=== PATIENT | female | born 1980 | race Caucasian/White ===

== ENCOUNTER 2017-10-11 01:36 | Emergency (ER) | payer BC ==
[~2017-10-11] VITALS: Ht 175.3 cm; Wt 140.2 kg
[~2017-10-11 01:36] MED LIST: AMITRIPTYLINE H25 M2 PO; ATIVAN1 MG PO; COLACE 100 MG100 MG PO; FLEXERIL PO; IBUPROFEN 800800 M1 PO; METHOCARBAMOL750 MG PO; SUBOXONE 8 MG-1 EAC3 PO
[2017-10-11] MEDS ORDERED: LATUDA20 MG PO (01:52)
[2017-10-11 02:30] LABS: ABSOLUTE NEUTROPHILS 6.8 thou/uL (1.4-8.2); BASOPHILS 0.9 % (0.0-2.0); EOSINOPHILS 1.7 % (0.0-3.0); HEMATOCRIT 38.8 % (37.0-47.0); HEMOGLOBIN 12.7 gm/dL (12.0-15.0); LYMPHOCYTES 22.6 % (24.0-44.0); MCH 27.1 pg (26.0-34.0); MCHC 32.6 g/dL (28.0-37.0); MCV 83.2 fL (80.0-100.0); MONOCYTES 5.2 % (1.0-8.0); PLATELET COUNT 319 thou/uL (150-400); POLYS 69.6 % (36.0-66.0); RBC 4.67 mil/uL (4.20-5.00); WBC 9.8 thou/uL (4.0-11.0)
[2017-10-11 02:39] LABS: CALCIUM 8.9 mg/dL (8.5-10.1); CREATININE 0.8 mg/dL (0.6-1.0)
[2017-10-11 02:44] LABS: POTASSIUM 4.9 mmol/L (3.5-5.1)
[2017-10-11] MEDS ORDERED: VENTOLIN HFA 1818 GM INH (03:39)
== END 2017-10-11 03:50 | disposition home or self-care (01) ==
LOC: ER 01:36
PROVIDERS: Emergency Medicine
DX: J40 Bronchitis, not specified as acute or chronic (principal); R21 Rash and other nonspecific skin eruption; F41.9 Anxiety disorder, unspecified; F17.210 Nicotine dependence, cigarettes, uncomplicated; Z88.6 Allergy status to analgesic agent